=== PATIENT | female | born 1995 | race Caucasian/White ===

== ENCOUNTER 2020-12-29 14:21 | Emergency (ER) | payer MEDICAID ==
[~2020-12-29] VITALS: Ht 165.1 cm; Wt 61.4 kg
[2020-12-29] MEDS ORDERED: ChlordiazePOXIDE HCL 10 MG CAPSULE PO ONE (15:15)
[2020-12-29] MEDS ORDERED: KETOROLAC TROMETHAMINE 30 MG/ML VIAL IM ONE (15:15)
[2020-12-29 16:34] VITALS: BP 130/69
== END 2020-12-29 16:36 | disposition home or self-care (01) ==
LOC: EMS 14:25
DX: S00.11XA Contusion of right eyelid and periocular area, initial encounter (principal); S40.022A Contusion of left upper arm, initial encounter; S40.021A Contusion of right upper arm, initial encounter; X58.XXXA Exposure to other specified factors, initial encounter; Y93.89 Activity, other specified; Y92.89 Other specified places as the place of occurrence of the external cause; Y99.8 Other external cause status
CPT/HCPCS: 96372; 99283; J1885